=== PATIENT | male | born 1970 | race Caucasian/White ===

== ENCOUNTER 2021-04-16 23:19 | Emergency (ER) | payer MEDICARE, OTHER ==
[~2021-04-16] VITALS: Ht 180.3 cm; Wt 88.5 kg
[~2021-04-16 23:19] MED LIST: RISPERDAL PO; SYNTHROID PO
--- NOTE | 2021-04-16 23:30 | NUR ---
Pt ambulated to ER with c/o 5 epsiodes of diarrhea that started today accompanied with nasuea. A/O x3, no SOB or labored breathing. Afebrile.
--- NOTE | 2021-04-16 23:34 | NUR ---
Dr. Sullivan at bedside, MSE in progress.
[2021-04-16] MEDS ORDERED: IV NORMAL SALINE 1000 ML BAG IV ONE (23:45)
[2021-04-16] MEDS ORDERED: ONDANSETRON 4 MG/2 ML VIAL IV ONE (23:45)
[2021-04-17 00:08] LABS: HEMATOCRIT 39.7 % (36.7-47.1); MEAN CORPUSCULAR HEMOGLOBIN 32.2 uug (23.8-33.4); MEAN CORPUSCULAR VOLUME 97.4 fL (73.0-96.2); PLATELET COUNT (AUTO) 297 K/uL (152-348)
[2021-04-17 00:12] LABS: CREATININE 1.3 mg/dL (0.6-1.3); POTASSIUM 4.8 mmol/L (3.5-5.1)
[2021-04-17] MEDS ORDERED: ONDANSETRON 4 MG/2 ML VIAL ONE (00:13)
[2021-04-17] MEDS ORDERED: ONDA4TAB11 PO (02:10)
--- NOTE | 2021-04-17 02:30 | NUR ---
Patient discharged to home in stable condition. A/O x4, no SOB or labored breathing. Denies any n/v/d. Denies any pain/discomfort at this time. Written and verbal after care instructions given. Patient verbalizes understanding of instructions. Stressed follow up or return to ER for worsening s/s. Steady gait.
[2021-04-17 02:33] VITALS: BP 118/70
== END 2021-04-17 02:30 | disposition home or self-care (01) ==
LOC: ER 23:23
DX: K52.9 Noninfective gastroenteritis and colitis, unspecified (principal); Z20.822 Contact with and (suspected) exposure to COVID-19; Z59.0 Homelessness; F41.9 Anxiety disorder, unspecified; E03.9 Hypothyroidism, unspecified; Z79.890 Hormone replacement therapy; Z88.2 Allergy status to sulfonamides; Z88.0 Allergy status to penicillin
CPT/HCPCS: 36415; 85025; A4663; J2405; J7030

== ENCOUNTER 2021-04-17 20:22 | Emergency (ER) | payer MEDICARE, OTHER ==
[~2021-04-17] VITALS: Ht 180.3 cm; Wt 86.6 kg
[~2021-04-17 20:22] MED LIST changes: +ONDA4TAB11 PO
[2021-04-17 20:48] VITALS: BP 114/69
== END 2021-04-17 20:49 | disposition home or self-care (01) ==
LOC: ER 20:23
DX: F12.929 Cannabis use, unspecified with intoxication, unspecified (principal); F15.10 Other stimulant abuse, uncomplicated; K52.9 Noninfective gastroenteritis and colitis, unspecified; Z88.0 Allergy status to penicillin; Z88.2 Allergy status to sulfonamides; J45.909 Unspecified asthma, uncomplicated; Z87.891 Personal history of nicotine dependence
CPT/HCPCS: A4663

== ENCOUNTER 2021-06-05 08:50 | Emergency (ER) | payer MEDICARE, OTHER ==
[~2021-06-05] VITALS: Ht 180.3 cm; Wt 90.7 kg
[2021-06-05] MEDS ORDERED: KETOROLAC TROMETHAMINE 60 MG INJ IM ONE ×2 (09:30→09:42)
[2021-06-05] MEDS ORDERED: VANCOMYCIN 1G/D5W 200 ML PIGGYBACK IV ONE (09:45)
[2021-06-05] MEDS ORDERED: VANCOMYCIN IV 200 ML ONE (09:52)
--- NOTE | 2021-06-05 10:04 | NUR ---
started IV 20g left AC, infiltrated slightly on director paid media. Pt refused replacement, informed.
[2021-06-05] MEDS ORDERED: CLINDAMYCIN HCL 300 MG CAPSULE ONE (10:15)
[2021-06-05] MEDS ORDERED: CLINDAMYCIN HCL 150 MG CAPSULE PO ONE (10:15)
[2021-06-05] MEDS ORDERED: CLIN300C12 PO (10:44)
[2021-06-05] MEDS ORDERED: IBUP-1955 PO (10:44)
--- NOTE | 2021-06-05 10:52 | NUR ---
Gave pt RX and d/c instructions, pt verbalized understanding.
== END 2021-06-05 11:00 | disposition home or self-care (01) ==
LOC: ER 08:52
DX: M25.562 Pain in left knee (principal); L03.116 Cellulitis of left lower limb; Z87.891 Personal history of nicotine dependence; Z88.0 Allergy status to penicillin; Z88.2 Allergy status to sulfonamides; E03.9 Hypothyroidism, unspecified; Z79.890 Hormone replacement therapy; J45.909 Unspecified asthma, uncomplicated
CPT/HCPCS: 73564; 93971; 96365; 96372; 99284; J1885; J3370; A4663

== ENCOUNTER 2021-11-08 19:28 | Emergency (ER) | payer MEDICARE, OTHER ==
[~2021-11-08] VITALS: Ht 180.3 cm; Wt 102.1 kg
[~2021-11-08 19:28] MED LIST changes: +CLIN300C12 PO; +IBUP-1955 PO
--- NOTE | 2021-11-08 19:56 | NUR ---
Pt arrived at ER for cc of right knee pain X 4 days. Pt went to [facility] 11/06 for same complaint, xray done and no significant findings.
--- NOTE | 2021-11-08 20:02 | NUR ---
Dr. Melo at bedside for MSE.
[2021-11-08] MEDS ORDERED: ONDANSETRON ODT 4 MG TAB.RAPDIS SL ONE (20:15)
[2021-11-08] MEDS ORDERED: HYDROCODONE/APAP 10-325 MG TABLET PO ONE (20:15)
[2021-11-08] MEDS ORDERED: HYDR-4209 PO (20:16)
[2021-11-08] MEDS ORDERED: HYDROCODONE/APAP 10-325 MG TABLET ONE (20:17)
[2021-11-08] MEDS ORDERED: ONDANSETRON ODT 4 MG TAB.RAPDIS ONE (20:17)
--- NOTE | 2021-11-08 20:21 | NUR ---
Patient discharged to home in stable condition. Written and verbal after care instructions given. Patient verbalizes understanding of instructions. Stressed follow up or return to ER for worsening s/s. Patient ambulated fr the ER with steady gait. All belongings with patient.
[2021-11-08 20:23] VITALS: BP 152/79
[2021-11-09] MEDS ORDERED: NALO4SPR BNOSTRILS (11:47)
== END 2021-11-08 20:23 | disposition home or self-care (01) ==
LOC: ER 19:35
DX: M25.561 Pain in right knee (principal); J45.909 Unspecified asthma, uncomplicated; Z87.891 Personal history of nicotine dependence; R03.0 Elevated blood-pressure reading, without diagnosis of hypertension
CPT/HCPCS: A4663; Q0162

== ENCOUNTER 2021-11-09 09:20 | Emergency (ER) | payer MEDICARE, OTHER ==
[~2021-11-09] VITALS: Ht 180.3 cm; Wt 102.1 kg
[~2021-11-09 09:20] MED LIST changes: +HYDR-4209 PO
--- NOTE | 2021-11-09 09:43 | NUR ---
PT IS IN ROOM #2B. DR ARCHIBALD EVALUATED THE PT.
[2021-11-09 09:57] LABS: HEMATOCRIT 42.4 % (36.7-47.1); MEAN CORPUSCULAR HEMOGLOBIN 33.4 uug (23.8-33.4); MEAN CORPUSCULAR VOLUME 97.6 fL (73.0-96.2); PLATELET COUNT (AUTO) 265 K/uL (152-348)
[2021-11-09] MEDS ORDERED: OLANZAPINE 10 MG VIAL IM ONE ×2 (10:00→10:05)
--- NOTE | 2021-11-09 10:00 | NUR ---
Pt was placed on 5150 HOLD (DTS,DTO) by [employer]. Pt has been calm and cooperative but is now getting anxious and walking around in room 1A. Called nursing office for 1:1 sitter, none available at this time. Security called for 1:1 observation per nursing office.
[2021-11-09 10:01] LABS: *BILIRUBIN,URIN NEGATIVE (NEGATIVE); *CLARITY,URINE CLEAR (CLEAR); *COLOR,URINE YELLOW (YELLOW); *KETONES,URINE NEGATIVE (NEGATIVE); *UROBILINOGEN,URINE 0.2 E.U./dl (NORMAL); LEUKOCYTE ESTERASE ,URINE NEGATIVE (NEGATIVE); NITRITE, URINE NEGATIVE (NEGATIVE); UGLUCOSE TRACE (NEGATIVE)
[2021-11-09 10:02] LABS: CARBON DIOXIDE 32 mmol/L (21-32); CHLORIDE 105 mmol/L (98-107); CREATININE 1.1 mg/dL (0.6-1.3); GLUCOSE 134 mg/dL (74-106); POTASSIUM 4.4 mmol/L (3.5-5.1); UREA NITROGEN, BLOOD 28 mg/dL (7-18)
[2021-11-09 10:05] LABS: *BLOOD, URINE TRACE (NEGATIVE)
[2021-11-09 10:07] LABS: ALANINE AMINOTRANSFERASE 51 U/L (16-63); ALKALINE PHOSPHATASE 59 U/L (50-136); ASPARTATE AMINOTRANSFERASE 46 U/L (15-37); BILIRUBIN,DIRECT 0.1 mg/dL (0.0-0.2); BILIRUBIN,TOTAL 0.4 mg/dL (0.2-1.0); TOTAL PROTEIN, SERUM 8.7 g/dL (6.4-8.2)
--- NOTE | 2021-11-09 10:09 | NUR ---
PT WAS PLACED ON 51/50 HOLD BY [employer]. NO S/S OF ACUTE DISTRESS AT THIS TIME. CONTINUE TO MONITOR THE PT.
[2021-11-09 10:10] LABS: ACETAMINOPHEN < 2.0 ug/mL (10-30)
--- NOTE | 2021-11-09 10:25 | NUR ---
PT REFUSED HEAD CT. DR ARCHIBALD NOTIFIED.
[2021-11-09] MEDS ORDERED: risperiDONE 1 MG TABLET PO STA (10:30)
[2021-11-09 10:34] LABS: RBC,URINE 0-3 /HPF (0-3)
[2021-11-09 10:35] LABS: BACTERIA,URINE NONE SEEN /HPF (NONE SEEN); SQUAMOUS EPITHELIAL CELL,UR NONE SEEN /HPF (NONE SEEN); WBC,URINE NONE SEEN /HPF (0-3)
[2021-11-09 10:43] LABS: ETHANOL < 3 MG/DL (0-0)
[2021-11-09 10:53] LABS: *AMPHETAMINE, URINE POSITIVE (NEGATIVE); *CANNABINOID, URINE NEGATIVE (NEGATIVE); *COCCAINE, URINE NEGATIVE (NEGATIVE); *OPIATE, URINE POSITIVE (NEGATIVE); *PHENCYCLIDINE SCREEN,URINE NEGATIVE (NEGATIVE)
[2021-11-09] MEDS ORDERED: OLANZAPINE 5 MG TABLET PO ONE (11:45)
[2021-11-09] MEDS ORDERED: NALO4SPR BNOSTRILS (11:47)
--- NOTE | 2021-11-09 11:54 | NUR ---
Clinical Social Work Note Addendum: 11/09/21 at 1200 by OMKAR MCDONALD OMKAR faxed patient's clinicals to [facility] (Phone number: [phone], Fax number: [phone]). OMKAR informed ARIK Vila, of faxing clinicals.
--- NOTE | 2021-11-09 13:24 | NUR ---
PT IS GOING TO BE TRANSFERED TO [facility] , ROOM #100C, VIA BLS AMBULANCE. ADMITTING MD IS DR JOSEPH. TELEPHONE NUMBER FOR REPORT : [phone] . [facility] WAS CALLED TO TRANSFER PT TO [facility]. JAMEEL IS 1700. PT IS RESTING IN BED COMFORTABLY. NO S/S OF DISTRESS AT THIS TIME.SITTER AT THE BEDSIDE.
--- NOTE | 2021-11-09 17:44 | NUR ---
PT WAS TRANSFERED TO [facility] VIA BLS AMBULANCE. REPORT WAS GIVEN TO [facility] ARIK ESTEVEZ AND TO AMBULANCE EMT.
== END 2021-11-09 17:50 ==
LOC: ER 09:21
DX: F29 Unspecified psychosis not due to a substance or known physiological condition (principal); F91.1 Conduct disorder, childhood-onset type; R45.1 Restlessness and agitation; F22 Delusional disorders; F15.10 Other stimulant abuse, uncomplicated; J45.909 Unspecified asthma, uncomplicated; Z87.891 Personal history of nicotine dependence; Z88.0 Allergy status to penicillin; Z88.2 Allergy status to sulfonamides; Z79.1 Long term (current) use of non-steroidal anti-inflammatories (NSAID); Z79.899 Other long term (current) drug therapy; Z20.822 Contact with and (suspected) exposure to COVID-19
CPT/HCPCS: 36415; 85025; A4663; G0480; J2358

== ENCOUNTER 2022-09-30 06:59 | Emergency (ER) | payer MEDICARE, OTHER ==
[~2022-09-30] VITALS: Ht 180.3 cm; Wt 99.8 kg
[~2022-09-30 06:59] MED LIST changes: -CLIN300C12 PO; +NALO4SPR BNOSTRILS; -ONDA4TAB11 PO
[2022-09-30] MEDS ORDERED: TEST200V3 IM (07:15)
[2022-09-30] MEDS ORDERED: BICT1TAB PO (07:15)
[2022-09-30] MEDS ORDERED: LEVO100T PO (07:15)
--- NOTE | 2022-09-30 07:20 | NUR ---
[email or web address], medical screening exam in progress
[2022-09-30] MEDS ORDERED: KETOROLAC TROMETHAMINE 15 MG INJ IM ONE (07:30)
[2022-09-30] MEDS ORDERED: KETOROLAC TROMETHAMINE 15 MG INJ ONE (07:34)
--- NOTE | 2022-09-30 07:39 | NUR ---
"Can I have a pillow and blanket?" per patient's verbalization. Pillow and blanket were provided accordingly.
--- NOTE | 2022-09-30 08:01 | NUR ---
Patient is resting comfortably on gurney with eyes closed, NAD. Compression stockings and socks are on. MD notified.
--- NOTE | 2022-09-30 08:18 | NUR ---
Patient signed the [facility] WA[facility] FORM, pending discharge papers from [email or web address] time.
[2022-09-30] MEDS ORDERED: CLIN300C12 PO (08:24)
[2022-09-30] MEDS ORDERED: IBUP-1955 PO (08:26)
--- NOTE | 2022-09-30 08:48 | NUR ---
Patient was given written and verbal discharge instructions. Patient verbalized understanding of instructions. Patient was ambulatory with steady gait. Patient refused offer of [facility] placement. Patient was also given a list of available shelters in surrounding area. [facility] resource packet was given to patient for possible wheelchair if needed.
== END 2022-09-30 08:49 | disposition home or self-care (01) ==
LOC: ER 06:59
DX: I87.393 Chronic venous hypertension (idiopathic) with other complications of bilateral lower extremity (principal); L03.116 Cellulitis of left lower limb; L03.115 Cellulitis of right lower limb; F19.10 Other psychoactive substance abuse, uncomplicated; G89.29 Other chronic pain; E03.9 Hypothyroidism, unspecified; G40.909 Epilepsy, unspecified, not intractable, without status epilepticus; Z87.820 Personal history of traumatic brain injury; F31.9 Bipolar disorder, unspecified; I10 Essential (primary) hypertension; J45.909 Unspecified asthma, uncomplicated; Z88.0 Allergy status to penicillin; Z88.2 Allergy status to sulfonamides; Z87.891 Personal history of nicotine dependence; Z79.890 Hormone replacement therapy; Z79.899 Other long term (current) drug therapy
CPT/HCPCS: 99283; 96372; J1885; A4663